=== PATIENT | female | born 1985 | race Caucasian/White ===

== ENCOUNTER 2019-09-05 14:32 | Emergency (ER) | payer MEDICAID ==
[~2019-09-05] VITALS: Ht 182.9 cm; Wt 104.5 kg
[~2019-09-05 14:32] MED LIST: LANS30CA37 PO; PROM25TA14 PO
[2019-09-05 14:58] LABS: BASOPHILS % (AUTO) 0.8 % (0-1); EOSINOPHILS # (AUTO) 0.1 X10'3 (0-0.9); EOSINOPHILS % (AUTO) 3.2 % (0-6); HEMATOCRIT 35.7 % (35.0-45.0); HEMOGLOBIN 11.8 g/dl (12.0-16.0); LYMPHOCYTES # (AUTO) 1.7 X10'3 (1.1-4.8); LYMPHOCYTES % (AUTO) 47.6 % (21-51); MEAN CORPUSCULAR HGB CONC 33.1 g/dL (33.0-36.5); MEAN CORPUSCULAR VOLUME 78.5 FL (78-98); MEAN PLATELET VOLUME 7.3 FL (7.4-10.4); MONOCYTES # (AUTO) 0.3 X10'3 (0-0.9); MONOCYTES % (AUTO) 7.5 % (2-12); NEUTROPHILS # (AUTO) 1.5 X10'3 (1.8-7.7); NEUTROPHILS % (AUTO) 40.9 % (42-75); PLATELET COUNT 288 X10'3 (140-440); RED BLOOD COUNT 4.54 X10'6 (4.20-5.60); RED CELL DISTRIBUTION WIDTH 15.2 % (11.5-14.5); WHITE BLOOD COUNT 3.7 X10'3 (4.5-11.0)
[2019-09-05 15:15] LABS: ALANINE AMINOTRANSFERASE 28 U/L (12-78); ALBUMIN 4.1 G/DL (3.4-5.0); ALBUMIN/GLOBULIN RATIO 1.1 (1.1-1.5); ALKALINE PHOSPHATASE 53 IU/L (46-116); ANION GAP 9 (8-16); ASPARTATE AMINO TRANSFERASE 15 U/L (10-37); BILIRUBIN,TOTAL 0.4 MG/DL (0.1-1.0); BLOOD UREA NITROGEN 14 MG/DL (7-18); BUN/CREATININE RATIO 21.5 (6.6-38.0); CHLORIDE 105 MMOL/L (99-107); CREATININE 0.65 MG/DL (0.40-0.90); GLUCOSE 78 MG/DL (70-104); POTASSIUM 4.1 MMOL/L (3.5-5.1); SODIUM 140 MMOL/L (135-145); TOTAL CARBON DIOXIDE 26.5 MMOL/L (24-32); TOTAL PROTEIN 7.7 G/DL (6.4-8.2); eGFR > 90 ML/MIN
[2019-09-05 15:23] LABS: ETHANOL < 0.010 GM/DL (0.0-0.010); MAGNESIUM 1.8 MG/DL (1.5-2.4)
[2019-09-05 15:39] LABS: URINE HCG NEGATIVE (NEG)
[2019-09-05 15:41] LABS: CLARITY,URINE SLIGHTLY CLOUDY (Clear); COLOR,URINE YELLOW (Yellow); GLUCOSE, URINE NEGATIVE (Neg); KETONES,URINE TRACE mg/dl (Neg); LEUKOCYTE ESTERASE ,URINE NEGATIVE (Neg); NITRITES, URINE NEGATIVE (Neg); OCCULT BLOOD,URINE NEGATIVE (Neg); PH,URINE 5.5 (4.8-8.0); PROTEIN,URINE NEGATIVE (Neg); UROBILINOGEN,URINE 0.2 E.U/dL (0.2-1.0)
[2019-09-05 15:42] LABS: UA COLLECTION TYPE CLN CATCH MIDSTREAM
[2019-09-05 15:52] LABS: URINE AMPHETAMINE SCREEN NEGATIVE (Neg); URINE BARBITUATE SCREEN NEGATIVE (Neg); URINE BENZODIAZEPINES SCREEN NEGATIVE (Neg); URINE CANNABINOID SCREEN NEGATIVE (Neg); URINE COCAINE SCREEN NEGATIVE (Neg); URINE METHADONE SCREEN NEGATIVE (Neg); URINE OPIATE SCREEN NEGATIVE (Neg); URINE PHENCYCLIDINE SCREEN NEGATIVE (Neg)
[2019-09-05 15:54] VITALS: BP 109/66
[2019-09-05 15:58] LABS: BACTERIA,URINE 2+ /HPF (Neg); SQUAMOUS EPITHELIAL CELL,UR MANY /LPF (FEW)
[2019-09-05 15:59] LABS: RBC,URINE 0-2 /HPF (0-2); WBC,URINE 0-4 /HPF (0-4)
== END 2019-09-05 15:57 | disposition home or self-care (01) ==
LOC: ER 14:33
DX: R55 Syncope and collapse (principal); R07.2 Precordial pain; F41.9 Anxiety disorder, unspecified; F12.90 Cannabis use, unspecified, uncomplicated; Z72.89 Other problems related to lifestyle; Z98.890 Other specified postprocedural states; Z79.899 Other long term (current) drug therapy
CPT/HCPCS: 36415; 71045; 80053; 80305; 80320; 81001; 81025; 83735; 83880; 84443; 84484; 85025; 93005; 99284

== ENCOUNTER 2023-05-23 15:55 | Emergency (ER) | payer MEDICAID ==
[~2023-05-23] VITALS: Ht 185.4 cm; Wt 94.9 kg
[2023-05-23 17:37] VITALS: BP 120/75; PULSE 73; RESP 12; TEMP 98; O2SAT 100
[2023-05-23 18:46] LABS: BASOPHILS # (AUTO) 0.1 X10'3 (0-0.2); BASOPHILS % (AUTO) 1.5 % (0-1); EOSINOPHILS # (AUTO) 0.1 X10'3 (0-0.9); EOSINOPHILS % (AUTO) 3.1 % (0-6); HEMATOCRIT 30.4 % (35.0-45.0); HEMOGLOBIN 9.5 g/dl (12.0-16.0); LYMPHOCYTES # (AUTO) 1.5 X10'3 (1.1-4.8); LYMPHOCYTES % (AUTO) 34.7 % (21-51); MEAN CORPUSCULAR HGB CONC 31.2 g/dL (33.0-36.5); MEAN CORPUSCULAR VOLUME 70.5 FL (78-98); MEAN PLATELET VOLUME 7.3 FL (7.4-10.4); MONOCYTES # (AUTO) 0.3 X10'3 (0-0.9); NEUTROPHILS # (AUTO) 2.4 X10'3 (1.8-7.7); NEUTROPHILS % (AUTO) 54.7 % (42-75); PLATELET COUNT 292 X10'3 (140-440); RED BLOOD COUNT 4.31 X10'6 (4.20-5.60); RED CELL DISTRIBUTION WIDTH 19.6 % (11.5-14.5); WHITE BLOOD COUNT 4.4 X10'3 (4.5-11.0)
[2023-05-23 18:55] LABS: ALANINE AMINOTRANSFERASE 40 U/L (12-78); ALBUMIN/GLOBULIN RATIO 1.1 (1.1-1.5); ALKALINE PHOSPHATASE 58 IU/L (46-116); ANION GAP 8 (8-16); ASPARTATE AMINO TRANSFERASE 25 U/L (10-37); BILIRUBIN,TOTAL 0.3 MG/DL (0.1-1.0); BLOOD UREA NITROGEN 12 MG/DL (7-18); BUN/CREATININE RATIO 19.4 (10.0-20.0); CALCIUM 9.2 MG/DL (8.5-10.1); CHLORIDE 104 MMOL/L (99-107); CREATININE 0.62 MG/DL (0.40-0.90); GLUCOSE 78 MG/DL (70-104); POTASSIUM 3.7 MMOL/L (3.5-5.1); SODIUM 137 MMOL/L (135-145); TOTAL PROTEIN 7.8 G/DL (6.4-8.2); eCRCL 145 ML/MIN; eGFR > 90 ML/MIN
[2023-05-23 20:01] LABS: ANISOCYTOSIS 2+; HYPOCHROMASIA 1+; PLATELET ESTIMATE NORMAL
[2023-05-23 20:02] LABS: ACANTHOCYTES FEW; ELLIPTOCYTES 1+; MICROCYTOSIS 1+; SCHISTOCYTES FEW
== END 2023-05-23 19:26 | disposition home or self-care (01) ==
LOC: ER 15:55
DX: R79.89 Other specified abnormal findings of blood chemistry (principal); F12.90 Cannabis use, unspecified, uncomplicated; Z72.89 Other problems related to lifestyle; Z79.899 Other long term (current) drug therapy
CPT/HCPCS: 36415; 80053; 85008; 85025; 99283

== ENCOUNTER 2023-08-07 06:07 | Emergency (ER) | payer MEDICAID ==
[~2023-08-07] VITALS: Ht 185.4 cm; Wt 90.9 kg
[2023-08-07 06:33] VITALS: BP 128/78; PULSE 112; RESP 18; TEMP 98.6; O2SAT 97
[2023-08-07 08:04] LABS: ABG HCO3 17.2 mmol/L (22.0-26.0); ABG OXYGEN SATURATION 96.7 % (94-97); ABG PCO2 (T) 29.9 mmHg (32.0-45.0); ABG PH (T) 7.378 (7.350-7.450); ALLEN'S TEST POSITIVE; FCOHb 0.2 % (0.0-3.9); FHHb 3.3 % (0.0-5.0); FLOW 0 L/min; FMetHb 0.1 % (0.0-1.5); FO2Hb 96.4 % (94-97); MODE ROOM AIR; TOTAL HEMOGLOBIN 9.2 G/dl (12.0-16.0)
== END 2023-08-07 08:42 | disposition home or self-care (01) ==
LOC: ER 06:08
DX: T59.811A Toxic effect of smoke, accidental (unintentional), initial encounter (principal); X01.1XXA Exposure to smoke in uncontrolled fire, not in building or structure, initial encounter; Y93.89 Activity, other specified; Y92.89 Other specified places as the place of occurrence of the external cause; Y99.8 Other external cause status
CPT/HCPCS: 36600; 82803; 85018; 99283

== ENCOUNTER 2024-11-09 22:20 | Emergency (ER) | payer MEDICAID ==
[~2024-11-09] VITALS: Ht 182.9 cm; Wt 86.3 kg
[2024-11-09] MEDS: normal saline 1000ML IV soln IVB ONE (23:13)
[2024-11-09 23:21] LABS: BASOPHILS % (AUTO) 0.7 % (0-1); EOSINOPHILS # (AUTO) 0.2 X10'3 (0-0.9); EOSINOPHILS % (AUTO) 3.2 % (0-6); HEMATOCRIT 35.8 % (35.0-45.0); HEMOGLOBIN 11.9 g/dl (12.0-16.0); LYMPHOCYTES # (AUTO) 2.2 X10'3 (1.1-4.8); MEAN CORPUSCULAR HEMOGLOBIN 25.5 PG (27.0-31.0); MEAN CORPUSCULAR HGB CONC 33.3 g/dL (33.0-36.5); MEAN CORPUSCULAR VOLUME 76.7 FL (78-98); MEAN PLATELET VOLUME 7.1 FL (7.4-10.4); MONOCYTES # (AUTO) 0.3 X10'3 (0-0.9); MONOCYTES % (AUTO) 5.7 % (2-12); NEUTROPHILS # (AUTO) 2.2 X10'3 (1.8-7.7); NEUTROPHILS % (AUTO) 44.4 % (42-75); PLATELET COUNT 248 X10'3 (140-440); RED BLOOD COUNT 4.67 X10'6 (4.20-5.60); RED CELL DISTRIBUTION WIDTH 24.7 % (11.5-14.5); WHITE BLOOD COUNT 4.9 X10'3 (4.5-11.0)
[2024-11-09 23:36] LABS: ETHANOL 235 MG/DL (<10)
[2024-11-09 23:44] LABS: ANISOCYTOSIS 3+; MICROCYTOSIS 1+; PLATELET ESTIMATE NORMAL
[2024-11-10 00:24] LABS: ALANINE AMINOTRANSFERASE 40 U/L (12-78); ALBUMIN 3.9 G/DL (3.4-5.0); ALBUMIN/GLOBULIN RATIO 1.2 (1.1-1.5); ALKALINE PHOSPHATASE 74 IU/L (46-116); ANION GAP 11 (8-16); ASPARTATE AMINO TRANSFERASE 26 U/L (10-37); BILIRUBIN,TOTAL 0.2 MG/DL (0.1-1.0); BLOOD UREA NITROGEN 17 MG/DL (7-18); BUN/CREATININE RATIO 29.8 (10.0-20.0); CALCIUM 8.6 MG/DL (8.5-10.1); CHLORIDE 110 MMOL/L (99-107); CREATININE 0.57 MG/DL (0.40-0.90); GLUCOSE 88 MG/DL (70-104); POTASSIUM 3.2 MMOL/L (3.5-5.1); SODIUM 144 MMOL/L (135-145); TOTAL CARBON DIOXIDE 23.1 MMOL/L (24-32); TOTAL PROTEIN 7.2 G/DL (6.4-8.2); eCRCL 151 ML/MIN; eGFR > 90 ML/MIN
[2024-11-10 01:06] VITALS: BP 114/92; PULSE 92; RESP 18; TEMP 98.1; O2SAT 98
== END 2024-11-10 01:09 | disposition home or self-care (01) ==
LOC: EEVIPCON 22:21 → ER 22:21
DX: R55 Syncope and collapse (principal); F10.129 Alcohol abuse with intoxication, unspecified; Y90.9 Presence of alcohol in blood, level not specified
CPT/HCPCS: 36415; 71045; 80053; 80320; 82948; 84484; 85008; 85025; 93005; 96360; 99285; J7030

== ENCOUNTER 2024-12-30 18:35 | Emergency (ER) | payer MEDICAID ==
[~2024-12-30] VITALS: Ht 195.6 cm; Wt 95.0 kg
[2024-12-30 18:41] VITALS: BP 136/74; PULSE 95; RESP 16; TEMP 98.2; O2SAT 100
[2024-12-30 19:07] LABS: BASOPHILS % (AUTO) 0.7 % (0-1); EOSINOPHILS # (AUTO) 0.1 X10'3 (0-0.9); EOSINOPHILS % (AUTO) 2.7 % (0-6); HEMATOCRIT 34.8 % (35.0-45.0); HEMOGLOBIN 11.7 g/dl (12.0-16.0); LYMPHOCYTES # (AUTO) 1.8 X10'3 (1.1-4.8); LYMPHOCYTES % (AUTO) 34.8 % (21-51); MEAN CORPUSCULAR HEMOGLOBIN 25.8 PG (27.0-31.0); MEAN CORPUSCULAR HGB CONC 33.7 g/dL (33.0-36.5); MEAN CORPUSCULAR VOLUME 76.7 FL (78-98); MEAN PLATELET VOLUME 6.9 FL (7.4-10.4); MONOCYTES # (AUTO) 0.3 X10'3 (0-0.9); MONOCYTES % (AUTO) 6.4 % (2-12); NEUTROPHILS # (AUTO) 2.9 X10'3 (1.8-7.7); NEUTROPHILS % (AUTO) 55.4 % (42-75); PLATELET COUNT 316 X10'3 (140-440); RED BLOOD COUNT 4.54 X10'6 (4.20-5.60); RED CELL DISTRIBUTION WIDTH 15.9 % (11.5-14.5); WHITE BLOOD COUNT 5.2 X10'3 (4.5-11.0)
[2024-12-30 19:30] LABS: ALANINE AMINOTRANSFERASE 23 U/L (12-78); ALKALINE PHOSPHATASE 64 IU/L (46-116); ANION GAP 6 (8-16); ASPARTATE AMINO TRANSFERASE 15 U/L (10-37); BILIRUBIN,TOTAL 0.4 MG/DL (0.1-1.0); BLOOD UREA NITROGEN 19 MG/DL (7-18); BUN/CREATININE RATIO 30.2 (10.0-20.0); CALCIUM 8.8 MG/DL (8.5-10.1); CHLORIDE 105 MMOL/L (99-107); CREATININE 0.63 MG/DL (0.40-0.90); GLUCOSE 85 MG/DL (70-104); POTASSIUM 3.7 MMOL/L (3.5-5.1); SODIUM 139 MMOL/L (135-145); TOTAL CARBON DIOXIDE 27.7 MMOL/L (24-32); TOTAL PROTEIN 7.9 G/DL (6.4-8.2); eCRCL 159 ML/MIN; eGFR > 90 ML/MIN
[2024-12-30 19:34] LABS: BETA HCG,QUANTITATIVE 72 mIU/ml
--- NOTE | 2024-12-30 19:38 | Physician Documentation ---
History of Present Illness ~ General Chief Complaint: General Stated Complaint: LABS Time Seen by MD: 18:40 Primary Medical Doctor: [facility] History of Present Illness Initial Comments This 39-year-old female presenting requesting routine lab work due to requiring and outpatient iron infusion tomorrow and infusions and requiring routine lab work prior to visit. Patient reports no other acute symptoms or concerns he reports feels otherwise well. Patient reports that she is with positive test two days prior, patient reports that LMP was 12/08. Medication Reconciliation Allergies: Coded Allergies: latex (Verified Allergy, Unknown, 11/09/24) mild contact dermatitis Scheduled Lansoprazole (Prevacid), 30 MG PO DAILY Promethazine HCl (Promethazine HCl), 25 MG PO Q6H Past Medical History Past Medical History: *PSYCH*, Anxiety Past Surgical History: orthopedic surgeries, other Alcohol Use: Occasionally Drug Use: marijuana Lives with: Family Lives In: Home Occupation: employed Review of Systems ROS As stated above in the HPI, otherwise all systems are reviewed and negative. Physical Exam Physical Exam Vital Signs: Temperature: 98.2, Source: Temporal, Heart Rate: 95, Respiratory Rate: 16, BP: 136/74, Pulse Oximetry: 100, Weight: 95.000 Oxygen Flow Rate: 0 Physical Exam VITALS: Reviewed and as above. GENERAL: Alert, nontoxic appearing, no apparent distress. RESPIRATORY: No increased work of breathing, no respiratory distress, speaking in full clear sentences Progress Results/Orders Results/Orders Completed Orders - AILYN BRAMBILA [employer] Cbc/Diff (12/30/24 18:45) CMP (12/30/24 18:45) Hcg Serum Qt (12/30/24 18:45) Vital Signs 12/30/24 18:41 Temp 98.2 Pulse 95 Resp 16 B/P (MAP) 136/74 Pulse Ox 100 O2 Flow Rate 0 Laboratory Tests Test 12/30/24 18:56 White Blood Count 5.2 Red Blood Count 4.54 Hemoglobin 11.7 L Hematocrit 34.8 L Mean Corpuscular Volume 76.7 L Mean Corpuscular Hemoglobin 25.8 L Mean Corpuscular Hemoglobin Concent 33.7 Red Cell Distribution Width 15.9 H Platelet Count 316 Mean Platelet Volume 6.9 L Neutrophils (%) (Auto) 55.4 Lymphocytes (%) (Auto) 34.8 Monocytes (%) (Auto) 6.4 Eosinophils (%) (Auto) 2.7 Basophils (%) (Auto) 0.7 Neutrophils # (Auto) 2.9 Lymphocytes # (Auto) 1.8 Monocytes # (Auto) 0.3 Eosinophils # (Auto) 0.1 Basophils # (Auto) 0.0 CBC Comment Sodium Level 139 Potassium Level 3.7 Chloride Level 105 Carbon Dioxide Level 27.7 Anion Gap 6 L Blood Urea Nitrogen 19 H Creatinine 0.63 Estimated GFR/1.73 m2 > 90 BUN/Creatinine Ratio 30.2 H Glucose Level 85 Calcium Level 8.8 Total Bilirubin 0.4 Aspartate Amino Transf (AST/SGOT) 15 Alanine Aminotransferase (ALT/SGPT) 23 Alkaline Phosphatase 64 Total Protein 7.9 Albumin 4.0 Globulin 3.9 Albumin/Globulin Ratio 1.0 L HCG Beta Subunit 72 Chemistry Comments Medical Decision Making Findings This 39-year-old female presented requesting basic lab work that is being required for a scheduled iron infusion, patient reported feeling otherwise well with no acute symptoms or concerns. Lab work obtained. Patient discharged to follow up with infusion center. Departure Disposition: HOME / SELF CARE / HOMELESS Impression: Primary Impression: General medical exam Condition: Improved Additional Instructions: Please follow up with your primary care provider in the next few days. Please return to the emergency department for any new or worsening concerning symptoms. Referrals: NO PRIMARY CARE PROVIDER (PCP) Education Educated: Patient Educated regarding: diagnosis, treatment, prognosis, need for follow up Signature Scribe Signature: No scribe Attestation: The note accurately reflects work and decisions made by me.MICHELLE Aguero 12/31/24 01:51 AILYN BRAMBILA Dec 30, 2024 19:38
== END 2024-12-30 20:11 | disposition home or self-care (01) ==
LOC: ER 18:35
DX: Z00.00 Encounter for general adult medical examination without abnormal findings (principal); F41.9 Anxiety disorder, unspecified; F12.90 Cannabis use, unspecified, uncomplicated; Z72.89 Other problems related to lifestyle; Z91.040 Latex allergy status; Z79.899 Other long term (current) drug therapy
CPT/HCPCS: 36415; 80053; 84702; 85025; 99283

== ENCOUNTER 2025-03-03 11:44 | Emergency (ER) | payer MEDICAID, SELFPAY ==
[~2025-03-03] VITALS: Ht 182.9 cm; Wt 102.2 kg
[2025-03-03 11:51] VITALS: BP 131/74; PULSE 76; RESP 18; TEMP 98.1; O2SAT 99
--- NOTE | 2025-03-03 12:10 | Physician Documentation ---
History of Present Illness ~ Chief Complaint: Complications Stated Complaint: COMPLICATIONS Time Seen by MD: 12:07 Primary Medical Doctor: [facility] HPI 40-year-old female presenting with vaginal spotting that started this morning. She is currently 12 weeks . She reports some cramping but denies any specific pain. 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 Otherwise denies any other associated symptoms. Medication Reconciliation Allergies: Coded Allergies: latex (Verified Allergy, Unknown, 11/09/24) mild contact dermatitis Scheduled Lansoprazole (Prevacid), 30 MG PO DAILY Promethazine HCl (Promethazine HCl), 25 MG PO Q6H Past Medical History Past Medical History: *PSYCH*, Anxiety Past Surgical History: orthopedic surgeries, other Alcohol Use: Occasionally Drug Use: marijuana Lives with: Family Lives In: Home Occupation: employed Physical Exam Physical Exam Vital Signs: Temperature: 98.1, Source: Temporal, Heart Rate: 76, Respiratory Rate: 18, BP: 131/74, Pulse Oximetry: 99, Weight: 102.250 Physical Exam I have reviewed the triage vitals. CONST: Well developed and well nourished. In no acute distress HENT: Head Atraumatic EYES: Pupils are equal, round and reactive to light. Normal conjunctiva NECK: Normal range of motion. Supple. CARDIO: Normal rate and regular rhythm. No murmurs, rubs, or gallops. S1, S2. PULM/CHEST: No respiratory distress. Lungs clear to auscultation. No wheeze ABD: Soft and nontender. Nondistended. Bowel sounds normal. No guarding. : Exam deferred MSK: No edema. No deformity. NEURO: Alert and oriented to person, place and time. Moving all extremities SKIN: Warm and dry. PSYCH: Normal mood and affect. Good eye contact. Progress Results/Orders Results/Orders Orders - SORAIDA WISDOM MD US OB (03/03/25 12:07) Completed Orders - SORAIDA WISDOM MD Hcg Serum Qt (03/03/25 12:07) Cbc/Diff (03/03/25 12:07) Pt Inr (03/03/25 12:07) PTT (03/03/25 12:07) BMP (03/03/25 12:07) US OB (03/03/25 12:07) Vital Signs 03/03/25 11:51 Temp 98.1 Pulse 76 Resp 18 B/P (MAP) 131/74 Pulse Ox 99 Laboratory Tests Test 03/03/25 12:23 White Blood Count 4.4 L Red Blood Count 4.39 Hemoglobin 12.6 Hematocrit 37.3 Mean Corpuscular Volume 85.0 Mean Corpuscular Hemoglobin 28.7 Mean Corpuscular Hemoglobin Concent 33.8 Red Cell Distribution Width 20.8 H Platelet Count 190 Mean Platelet Volume 7.0 L Neutrophils (%) (Auto) 62.7 Lymphocytes (%) (Auto) 27.0 Monocytes (%) (Auto) 7.5 Eosinophils (%) (Auto) 2.5 Basophils (%) (Auto) 0.3 Neutrophils # (Auto) 2.8 Lymphocytes # (Auto) 1.2 Monocytes # (Auto) 0.3 Eosinophils # (Auto) 0.1 Basophils # (Auto) 0.0 CBC Comment Prothrombin Time 10.4 INR International Normalized Ratio 1.0 Activated Partial Thromboplast Time 29 Coagulation Comments Sodium Level 137 Potassium Level 3.3 L Chloride Level 104 Carbon Dioxide Level 25.7 Anion Gap 7 L Blood Urea Nitrogen 12 Creatinine 0.52 Estimated GFR/1.73 m2 > 90 BUN/Creatinine Ratio 23.1 H Glucose Level 81 Calcium Level 8.9 Albumin 3.6 HCG Beta Subunit 99005 Chemistry Comments EKG/XRAY/CT/US/VASC/MRI Ultrasound : Impression OB ULTRASOUND <14 WEEKS: HISTORY: vaginal spotting- 12 weeks IUP TECHNIQUE: Multiple real-time grayscale sonographic images of the pelvis with duplex Doppler color flow, spectral and M-mode analysis. TRANSDUCERS: Transabdominal COMPARISON: None FINDINGS: The uterus measures 12.7 x 9.8 x 11.5 cm The cervix is not visualized Right ovary measures 5.4 x 3.1 x 3.7 cm with normal Doppler color flow. Left ovary measures 6.4 x 5.2 x 4.4 cm with normal Doppler color flow. IUP single fetus at 12 weeks and 4 days average ultrasound age based on mean crown-rump length of 7.2 cm and gestational sac size of 5.6 cm heart rate detected at 155 beats per minute. Yolk sac is not visualized. Amniotic fluid is subjectively within normal limits Ayanna-gestational space: Unremarkable IMPRESSION: IUP single live fetus 12 weeks and 4 days AUA corresponding to an LATASHA of 09/11/2025. No acute abnormality detected. Medical Decision Making Additional Comment 40-year-old female presenting with concerns of a miscarriage. Her lab workup is unremarkable. Pelvic OB ultrasound indicates a normal IUP at 12+ 4 weeks with heart rate of 155 beats per minute. The patient was given reassurance. I suspect that the vaginal spotting was likely secondary to a potential subchorionic hemorrhage. Advised the patient to monitor her symptoms. Should they worsen in the bleeding increase in any point she was advised to return immediately to the emergency department. Otherwise she was advised to follow up closely with her OB in the next 2-3 days. Departure Disposition: HOME / SELF CARE / HOMELESS Impression: Primary Impression: Vaginal bleeding in patient after first trimester Condition: Improved Discharge Instructions: Vaginal Bleeding During , First Trimester Referrals: NO PRIMARY CARE PROVIDER (PCP) Signature Scribe Signature: 1 Attestation: 1 SORAIDA WISDOM MD Mar 03, 2025 12:10
[2025-03-03 12:34] LABS: MEAN PLATELET VOLUME 7.0 FL (7.4-10.4); RED CELL DISTRIBUTION WIDTH 20.8 % (11.5-14.5)
[2025-03-03 12:44] LABS: APTT 29 SECONDS (22-32); INR 1.0 INR
[2025-03-03 13:17] LABS: CREATININE 0.52 MG/DL (0.40-0.90); TOTAL CARBON DIOXIDE 25.7 MMOL/L (24-32); eCRCL 164 ML/MIN; eGFR > 90 ML/MIN
--- NOTE | 2025-03-03 13:25 | RADIOLOGY REPORT ---
OB ULTRASOUND <14 WEEKS: HISTORY: vaginal spotting- 12 weeks IUP TECHNIQUE: Multiple real-time grayscale sonographic images of the pelvis with duplex Doppler color f low, spectral and M-mode analysis. TRANSDUCERS: Transabdominal COMPARISON: None FINDINGS: The uterus measures 12.7 x 9.8 x 11.5 cm The cervix is not visualized Right ovary measures 5.4 x 3.1 x 3.7 cm with normal Doppler color flow. Left ovary measures 6.4 x 5.2 x 4.4 cm with normal Doppler color flow. IUP single fetus at 12 weeks and 4 days average ultrasound age based on mean crown-rump length of 7. 2 cm and gestational sac size of 5.6 cm heart rate detected at 155 beats per minute. Yolk sac is not visualized. Amniotic fluid is subjectively within normal limits Ayanna-gestational space: Unremarkable IMPRESSION: IUP single live fetus 12 weeks and 4 days AUA corresponding to an LATASHA of 09/11/2025. No acute abnormality detected.
== END 2025-03-03 13:58 | disposition home or self-care (01) ==
LOC: ER 11:44
DX: O20.9 Hemorrhage in early pregnancy, unspecified (principal); F41.9 Anxiety disorder, unspecified; F12.90 Cannabis use, unspecified, uncomplicated; Z3A.12 12 weeks gestation of pregnancy; Z91.040 Latex allergy status; Z79.899 Other long term (current) drug therapy; Z72.89 Other problems related to lifestyle
CPT/HCPCS: 36415; 76801; 80048; 84702; 85025; 85610; 85730; 99284